=== PATIENT | female | born 1950 | race Caucasian/White ===

== ENCOUNTER → 2016-07-08 | Outpatient (CLI) | payer BC ==
[~2016-07-08] MED LIST: ASPCH81 PO; ASPCH81X PO; BND25X PO; BOWEL DETOX; CHOL400T5 PO; CHOLTAB3 PO; LISI-461 PO; LISI10TA PO; METH4PAK PO; OXYC1TAB3 PO; PROP0.6D OPB; SILVER SHIELD PO; TRAM-10 PO; [UNRECOGNIZED DRUG - OTHER]; [UNRECOGNIZED DRUG - OTHER]; [UNRECOGNIZED DRUG - OTHER]; [UNRECOGNIZED DRUG - OTHER] IO; krill oil
== END | disposition home or self-care (01) ==
LOC: C.LABSPEC 14:20
PROVIDERS: ATTEND Internal Medicine
DX: J02.9 Acute pharyngitis, unspecified (principal)

== ENCOUNTER 2016-08-19 08:37 | Emergency (ER) | payer BC ==
[~2016-08-19] VITALS: Ht 161.3 cm; Wt 75.7 kg
[~2016-08-19 08:37] MED LIST changes: -ASPCH81X PO; -CHOL400T5 PO; -LISI10TA PO; -METH4PAK PO; -OXYC1TAB3 PO; -PROP0.6D OPB; -TRAM-10 PO
[2016-08-19 08:41] VITALS: TEMP 37; Ht 161.3 cm; Wt 75.7 kg
[2016-08-19] MEDS ORDERED: CHOL400T5 PO (08:57)
[2016-08-19] MEDS ORDERED: ASPCH81X PO (08:57)
[2016-08-19] MEDS ORDERED: DEXAMETHASONE SOD INJ 10 MG/ML VIAL IV STA (09:02)
[2016-08-19] MEDS ORDERED: KETOROLAC TROMETHAMINE 30 MG/ML VIAL IV STA (09:02)
[2016-08-19 09:37] LABS: BASO % 0.4 %; BASO ABS # 0.02 K/uL (0-0.2); COMPLETE YES; EOS % 3.5 %; HEMATOCRIT 42.8 % (37-47); IG% 0.2 %; LYMPH % 25.3 %; LYMPH ABS # 1.24 K/uL (1.2-3.4); MEAN CELL VOLUME 84.8 fL (80-100); MEAN CORPUSCULAR HEMOGLOBIN 30.1 pg (25-34); MEAN CORPUSCULAR HGB CONC 35.5 g/dl (32-36); MEAN PLATELET VOLUME 9.6 fL (7.4-10.4); MONO % 4.9 %; NEUT % 65.7 %; PLATELET COUNT 214 K/uL (130-400); RED BLOOD COUNT 5.05 M/uL (4.2-5.4); WHITE BLOOD COUNT 4.91 K/uL (4.8-10.8)
[2016-08-19 09:52] LABS: BUN/CREATININE RATIO 18.2 (10-20); CALCIUM 9.7 mg/dl (8.5-10.1); CREATININE 0.96 mg/dl (0.60-1.20); POTASSIUM 3.9 mmol/L (3.5-5.1)
--- NOTE | 2016-08-19 10:08 | DIAGNOSTIC IMAGING REPORT ---
L-SPINE MIN 4 VIEWS ROUTINE CLINICAL HISTORY: Low back pain with right leg radiculopathy. COMPARISON STUDY: No previous studies for comparison. FINDINGS: There are 5 lumbar type vertebral bodies present. No fractures, subluxations, or destructive lesions are evident. There are minor degenerative changes present. IMPRESSION: No fractures subluxations or destructive lesions are visualized. Electronically signed by: Kevin Caro M.D. 08/19/2016 10:07 AM Dictated Date/Time: 08/19/2016 10:06 AM
[2016-08-19] MEDS ORDERED: METH4PAK PO (10:40)
[2016-08-19] MEDS ORDERED: OXYC1TAB3 PO (10:40)
--- NOTE | 2016-08-19 10:41 | EMERGENCY ROOM VISIT NOTE ---
History First contact with patient: 08:49 Chief Complaint: BACK PAIN Stated Complaint: SCIATICA History of Present Illness The patient is a 65 year old female who presents to the Emergency Room via private vehicle accompanied by male with complaints of "sciatica". The patient states that she has a history of sciatica which has flared in the past but has recently been tolerable. She states that 2 weeks ago, she notes that after being on her feet all day she has had progressive right gluteal numbness/ tingling that radiates down the side of her right leg across the distal thigh and down into the feet. She states it is an electrical-like feeling or burning. She states that when she had this before it was not this bad. She states she has gone to her chiropractor with minimal relief. She rates the pain as an 8/10 and has been taking Tylenol with minimal relief. She states she has had x-rays performed at her chiropractor's office. At this time she denies any lower extremity weakness, bowel or bladder incontinence, numbness or tingling in the genital region, urinary symptoms, abdominal pain, chest pain, shortness of breath, fevers, chills, fall or trauma to the region. Review of Systems A complete 10-point Review of Systems was discussed with the patient, with pertinent positives and negatives listed in the History of Present Illness. All remaining Review of Systems questions can be considered negative unless otherwise specified. Past Medical/Surgical History High blood pressure, lumpectomy Family History Diabetes, heart disease, high blood pressure, cancer. Social History Smoking Status: Never Smoker Social History: Patient lives at home with , she feels safe at home and denies tobacco products. She does admit to alcohol use. She states this is one glass of wine per week. Current/Historical Medications Scheduled Aspirin (Aspirin Chewable), 81 MG PO DAILY Cholecalciferol (Vitamin D), 1 TAB PO DAILY Lisinopril (Zestril), 10 MG PO DAILY Methylprednisolone (Medrol Dosepak), 0 PO DAILY [Alj], 2 TABLETS DAILY [Silver Shield], 1 TSP PO PRN [Sooth Eye Gtts], IO PRN [bowel detox], 3 CAPSULES DAILY [breast assured], 2 TABLETS DAILY [[id number]], 2 TABS DAILY [krill oil], 1 CAP DAILY Scheduled PRN Oxycodone Ir (Roxicodone Ir), 1-2 TAB PO Q4H PRN for Pain Allergies Coded Allergies: Meperidine (Unverified Adverse Reaction, Intermediate, syncopy, 08/19/16) Physical Exam Vital Signs Date Time Temp Pulse Resp B/P Pulse Ox O2 Delivery O2 Flow Rate FiO2 08/19/16 10:59 76 18 164/97 97 08/19/16 08:41 37.0 90 18 152/96 96 Room Air Physical Exam VITAL SIGNS - Vital signs and nursing notes were reviewed. Patient is afebrile , slightly hypertensive at 152/96, non-tachycardic and saturating well on room air 96%. GENERAL -65-year-old female appearing her stated age who is in no acute distress. Communicates well with provider and answers questions appropriately. SKIN - Without rashes. No breaks in the integument. No petechial rashes. HEAD - NC/AT. EYES - Sclera anicteric. Palpebral conjunctiva pink and moist with no injection noted. NECK - Neck with FROM. Supple to palpation. No C-spine tenderness. No nuchal rigidity. MUSCULOSKELETAL: There is no tenderness to palpation overlying the cervical, thoracic or lumbar spine. There is no bony tenderness. Overlying the right gluteal muscle extending into the right lateral thigh and across the distal thigh in the leg there is tenderness. No bony tenderness identified. Patient is able to axial load. LUNGS - Chest wall symmetric without accessory muscle use, intercostals retractions, or central cyanosis. Normal vesicular breath sounds CTA B/L. No wheezes, rales, or rhonchi appreciated. CARDIAC - RRR with S1/S2. No murmur, rubs, or gallops appreciated. EXTREMITIES - No clubbing or peripheral cyanosis. No pretibial edema present. Patient is vascularly intact in the extremities. +5/5 strength noted in UE/LE bilaterally. No deficits appreciated. NEUROLOGIC - Cranial nerves II through XII grossly intact. Sensory intact to light touch throughout. Patellar reflexes +2/4. Medical Decision & Procedures ER Provider Diagnostic Interpretation: L-SPINE MIN 4 VIEWS ROUTINE CLINICAL HISTORY: Low back pain with right leg radiculopathy. COMPARISON STUDY: No previous studies for comparison. FINDINGS: There are 5 lumbar type vertebral bodies present. No fractures, subluxations, or destructive lesions are evident. There are minor degenerative changes present. IMPRESSION: No fractures subluxations or destructive lesions are visualized. Electronically signed by: Kevin Caro M.D. 08/19/2016 10:07 AM Dictated Date/Time: 08/19/2016 10:06 AM Laboratory Results 08/19/16 09:16 Red Blood Count 5.05, Mean Corpuscular Volume 84.8, Mean Corpuscular Hemoglobin 30.1, Mean Corpuscular Hemoglobin Concent 35.5, Mean Platelet Volume 9.6, Neutrophils (%) (Auto) 65.7, Lymphocytes (%) (Auto) 25.3, Monocytes (%) (Auto) 4.9, Eosinophils (%) (Auto) 3.5, Basophils (%) (Auto) 0.4, Neutrophils # (Auto) 3.23, Lymphocytes # (Auto) 1.24, Monocytes # (Auto) 0.24, Eosinophils # (Auto) 0.17, Basophils # (Auto) 0.02 08/19/16 09:16 Test 08/19/16 09:16 White Blood Count 4.91 K/uL (4.8-10.8) Red Blood Count 5.05 M/uL (4.2-5.4) Hemoglobin 15.2 g/dL (12.0-16.0) Hematocrit 42.8 % (37-47) Mean Corpuscular Volume 84.8 fL (80-100) Mean Corpuscular Hemoglobin 30.1 pg (25-34) Mean Corpuscular Hemoglobin Concent 35.5 g/dl (32-36) Platelet Count 214 K/uL (130-400) Mean Platelet Volume 9.6 fL (7.4-10.4) Neutrophils (%) (Auto) 65.7 % Lymphocytes (%) (Auto) 25.3 % Monocytes (%) (Auto) 4.9 % Eosinophils (%) (Auto) 3.5 % Basophils (%) (Auto) 0.4 % Neutrophils # (Auto) 3.23 K/uL (1.4-6.5) Lymphocytes # (Auto) 1.24 K/uL (1.2-3.4) Monocytes # (Auto) 0.24 K/uL (0.11-0.59) Eosinophils # (Auto) 0.17 K/uL (0-0.5) Basophils # (Auto) 0.02 K/uL (0-0.2) RDW Standard Deviation 40.0 fL (36.4-46.3) RDW Coefficient of Variation 13.1 % (11.5-14.5) Immature Granulocyte % (Auto) 0.2 % Immature Granulocyte # (Auto) 0.01 K/uL (0.00-0.02) Anion Gap 8.0 mmol/L (3-11) Est Creatinine Clear Calc Drug Dose 59.1 ml/min Estimated GFR () 72.9 Estimated GFR (Non- 62.9 BUN/Creatinine Ratio 18.2 (10-20) Calcium Level 9.7 mg/dl (8.5-10.1) Medications Administered Medications (Trade) Dose Ordered Sig/Leti Route Start Time Stop Time Status Last Admin Dose Admin Ketorolac Tromethamine (Toradol Inj) 30 mg NOW STAT IV 08/19/16 09:02 08/19/16 09:10 DC 08/19/16 09:02 30 MG Dexamethasone Sodium Phosphate (Decadron Inj) 10 mg NOW STAT IV 08/19/16 09:02 08/19/16 09:10 DC 08/19/16 09:02 10 MG Medical Decision Patient was seen and evaluated as above. Upon presentation it appears that she is experiencing radicular symptoms. After obtaining a thorough history and physical examination I did elect to obtain radiographs of the L-spine. These are negative for acute process. The patient did not have any bony tenderness or back pain however does appear that she has radicular symptoms in the right gluteal region consistent with sciatica that radiates down into the right lower leg. Due to the nature of the pain as like an electrical or burning pain as well as the patient having a previous history of sciatica with the same symptoms however this time just worse I do believe that this is most likely the cause of her pain. Due to the underlying comorbidities I did find it to be appropriate to obtain basic lab work and provide her with pain medication. IV access was initiated and a CBC and PRP were obtained. She was medicated with 30 mg of Toradol IV as well as 10 mg of Decadron IV. These are to help with pain and inflammation likely causing the radicular symptoms of the right lower extremity. There were no neurologic deficits. Radiograph is negative with results as above. I agree with radiologist findings. The patient was reevaluated and noted to be feeling better after receiving the Toradol. I educated her upon today's findings. Her CBC is completely unremarkable. PRP is also unremarkable except for random glucose of 141. This was discussed with the patient. Given that she had good response to the Toradol, and has no concerning infectious or evidence of renal failure I do believe it is appropriate to treat the patient at this time for radicular symptoms of the right lower extremity. She will be placed upon a steroid as well as short pain medication course to help with the pain and inflammation. She'll be given a Medrol Dosepak as well as a short-term prescription for OxyIR. She was educated upon management and these medications. She was educated upon today's findings. She was educated upon worrisome symptoms in which to return She had questions answered prior to discharge, and was discharged home in good condition. In the evaluation and treatment of this patient the following differential diagnoses were entertained: Radicular symptoms of the right lower extremity, hip fracture, spinal abscess, contusion, strain, among others. [place] Drug Monitoring Program Search Results: patient reviewed within database, no issues identified Impression Primary Impression: Lumbar radiculopathy, right Departure Information Dispostion Home / Self-Care Condition GOOD Prescriptions Oxycodone Ir (Roxicodone Ir) 5 Mg Tab 1-2 TAB PO Q4H Y for Pain, #15 TAB For Initial Treatment Prov: Kiko Brennna PA-C 08/19/16 Methylprednisolone (MEDROL DOSEPAK) 4 Mg Fuentes 0 PO DAILY, #1 PKT Prov: Kiko Brennan PA-C 08/19/16 Referrals Alhaji Triplett M.D. (PCP) Tavon Donis, DO Patient Instructions [facility] Additional Instructions You have been treated in the Emergency Department for radicular pain into your right leg. You have been prescribed Oxy IR to be used for pain control. This is a narcotic medication. You cannot drive or consume alcohol while on this medicine. This medicine should only be used for pain that cannot be controlled with over-the- counter pain medicines. You have been prescribed a Medrol Dosepak. Take this medication as prescribed. You should take the COMPLETE 6-day course of this medication. This is an anti- inflammatory medicine that will help to minimize your symptoms. For pain control, you can use the following [id number] medicines (if >12 yo): - Regular strength (325mg/tab) Tylenol (acetaminophen) 2 tabs every 4-6 hours as needed. Do not exceed 12 tablets in a 24 hour period. Avoid taking more than 4 grams (4000 mg) of Tylenol per day. This includes any other sources of acetaminophen you may take on a regular basis. - Regular strength (200 mg/tab) Advil (ibuprofen) 1-2 tabs every 4-6 hours as needed. Do not exceed a dose of 3200 mg per day. If this is an acute injury, ice can be applied to the area of pain for the first 3 days to help decrease pain and inflammation. After the first 3 days, a heating pad can be used over the area for continued soothing relief. You should schedule a follow-up appointment in 2-3 days with your Primary Care Provider for further evaluation and treatment of your back pain. AND CALL THE CASE MANAGEMENT DIRECTOR LISTED ABOVE (DR. DONIS) Return to the Emergency Department if your current symptoms worsen despite treatment course outlined above, or if you develop any of the following symptoms : intractable pain despite aforementioned treatment course, loss of control of your bowel or bladder, numbness or tingling in your groin, or development of a fever. Please return to the emergency department with any new/concerning symptoms. Please follow-up with your family doctor regarding her blood pressure.
[2016-08-19 10:59] VITALS: BP 164/97; PULSE 76; O2SAT 97
[2016-11-12] MEDS ORDERED: LISI10TA PO (15:50)
[2016-11-12] MEDS ORDERED: PROP0.6D OPB (15:50)
[2016-11-12] MEDS ORDERED: TRAM-10 PO (15:50)
== END 2016-08-19 11:02 | disposition home or self-care (01) ==
LOC: C.EDB 08:38
DX: M54.16 Radiculopathy, lumbar region (principal); I10 Essential (primary) hypertension; Z79.82 Long term (current) use of aspirin; Z79.899 Other long term (current) drug therapy; Z88.8 Allergy status to other drugs, medicaments and biological substances; Z83.3 Family history of diabetes mellitus; Z82.49 Family history of ischemic heart disease and other diseases of the circulatory system; Z80.9 Family history of malignant neoplasm, unspecified

== ENCOUNTER → 2016-11-04 | Outpatient (CLI) | payer BC ==
[~2016-11-04] MED LIST changes: -ASPCH81 PO; +ASPCH81X PO; -BND25X PO; +CHOL400T5 PO; -CHOLTAB3 PO; +LISI10TA PO; +OXYC1TAB3 PO; +PROP0.6D OPB; +TRAM-10 PO
[2016-11-04 14:18] LABS: BLOOD UREA NITROGEN 13 mg/dl (7-18); BUN/CREATININE RATIO 15.6 (10-20); CALCIUM 9.1 mg/dl (8.5-10.1); CARBON DIOXIDE 30 mmol/L (21-32); CHLORIDE 108 mmol/L (98-107); CREATININE 0.82 mg/dl (0.60-1.20); GLUCOSE 96 mg/dl (70-99); SODIUM 144 mmol/L (136-145)
[2016-11-04 14:23] LABS: CHOLESTEROL 204 mg/dl (0-200); CHOLESTEROL/HDL RATIO 4.4; HDL CHOLESTEROL 46 mg/dl; TRIGLYCERIDES 149 mg/dl (0-150); VERY LOW DENSITY LIPOPROT CALC 30 mg/dl
== END | disposition home or self-care (01) ==
LOC: C.LABSPEC 12:10
PROVIDERS: ATTEND Internal Medicine
DX: Z00.00 Encounter for general adult medical examination without abnormal findings (principal); E78.5 Hyperlipidemia, unspecified; I10 Essential (primary) hypertension

== ENCOUNTER → 2016-11-10 | Outpatient (CLI) | payer BC | END | disposition home or self-care (01) | LOC: C.LABSPEC 12:17 | PROVIDERS: ATTEND Internal Medicine | DX: Z12.11 Encounter for screening for malignant neoplasm of colon (principal) ==

== ENCOUNTER → 2016-11-18 | Day surgery (SDC) | payer BC ==
[2016-11-12 15:50] VITALS: Ht 162.6 cm; Wt 72.7 kg
[~2016-11-18] VITALS: Ht 162.6 cm; Wt 72.7 kg
[~2016-11-18] MED LIST changes: +DEXAMETHASONE SOD INJ 4 MG/ML VIAL ONE; +LIDOCAINE HCL 1% MPF 5 ML VIAL ONE; -LISI-461 PO; -OXYC1TAB3 PO; -[UNRECOGNIZED DRUG - OTHER]; -[UNRECOGNIZED DRUG - OTHER]; -[UNRECOGNIZED DRUG - OTHER] IO; -krill oil
--- NOTE | 2016-11-18 09:11 | History & Physical Bridge Note ---
H&P Re-Evaluation Bridge Note: I have examined the patient, reviewed the History & Physical and in the interval since the performance of the History & Physical I have noted the following changes of clinical significance: No changes noted
--- NOTE | 2016-11-18 09:29 | [facility] Post Operative Brief Note ---
Immediate Operative Summary Operative Date Nov 18, 2016. Pre-Operative Diagnosis SPINAL STENOSIS Post-Operative Diagnosis SAME Procedure(s) Performed LUMBAR EPIDURAL STEROID INJECTION L4-L5 RIGHT Surgeon DR. Latonya TORRES Investment Specialist Surgeon(s) 0 Estimated Blood Loss 0 Findings stenosis Specimens 0 Complication(s) None Disposition Recovery Room / PACU
[2016-11-18 09:30] VITALS: TEMP 36.5
[2016-11-18 09:42] VITALS: BP 154/96; PULSE 67; O2SAT 98
--- NOTE | 2016-11-18 09:45 | OPERATIVE REPORT ---
DATE OF OPERATION: 11/18/2016 PREOPERATIVE DIAGNOSIS: Stenosis lumbar spine L4-L5. POSTOPERATIVE DIAGNOSIS: Same. PROCEDURE: Included epidural steroid 4-5 lumbar. SURGEON: Dr. Donis. DESCRIPTION OF PROCEDURE: The patient was taken to the minor procedure room, placed prone, prepped and draped sterile. 2 mL of dexamethasone injected at L4-L5 lumbar spine using a volume acceptance syringe. The patient tolerated well, returned to PACU stable. No complications. No specimen. I attest to the content of the Intraoperative Record and any orders documented therein. Any exception s are noted below.
--- NOTE | 2016-11-18 09:51 | Discharge Instructions-SurgCtr ---
Discharge Instructions Date of Service Nov 18, 2016. Visit Reason for Visit: Spinal Stenosis Discharge Discharge Diagnosis / Problem: stenosis Discharge Goals Goal(s): Improve function Activity Recommendations Activity Limitations: resume your previous activity Anesthesia . Post Anesthesia Instructions: If you have had General Anesthesia or IV Sedation: * Do not drive today. * Resume driving when surgeon permits. * Do not make important decisions or sign legal documents today. * Call surgeon for: 1. Temperature elevations greater than 101 degrees F. 2. Uncontrollable pain. 3. Excessive bleeding. 4. Persistent nausea and vomiting. 5. Medication intolerance (nausea, vomiting or rash). * For nausea and vomiting use only clear liquids such as: tea, soda, bouillon until nausea subsides, then gradually increase diet as tolerated. * If you have any concerns or questions, call your surgeon's office. If physician is unavailable and it is an emergency, call 911 or go to the nearest emergency room. . Diet Recommendations Home Diet: no limitations Procedures Procedures Performed: LUMBAR EPIDURAL STEROID INJECTION L4-L5 RIGHT Pending Studies Studies pending at discharge: no Medical Emergencies . Who to Call and When: Medical Emergencies: If at any time you feel your situation is an emergency, please call 911 immediately. . Non-Emergent Contact Non-Emergency issues call your: Primary Care Provider . . "Provider Documentation" section prepared by Tavon Donis. .
== END | disposition home or self-care (01) ==
LOC: X.SURG 08:00
PROVIDERS: ATTEND Orthopaedic Surgery Orthopaedic Surgery of the Spine
DX: M48.06 Spinal stenosis, lumbar region (principal); I10 Essential (primary) hypertension; Z85.3 Personal history of malignant neoplasm of breast

== ENCOUNTER → 2017-01-06 | Outpatient (CLI) | payer BC ==
[~2017-01-06] MED LIST changes: -DEXAMETHASONE SOD INJ 4 MG/ML VIAL ONE; -LIDOCAINE HCL 1% MPF 5 ML VIAL ONE
== END | disposition home or self-care (01) ==
LOC: C.PAPS 10:53
PROVIDERS: ATTEND Physician Assistant
DX: Z01.419 Encounter for gynecological examination (general) (routine) without abnormal findings (principal)

== ENCOUNTER → 2017-03-15 | Outpatient (CLI) | payer BC ==
--- NOTE | 2017-03-17 07:45 | MAMMOGRAPHY REPORT ---
BILATERAL DIGITAL SCREENING MAMMOGRAM TOMOSYNTHESIS WITH CAD: 03/15/2017 CLINICAL HISTORY: Asymptomatic. Personal history of breast cancer. TECHNIQUE: Breast tomosynthesis in addition to standard 2D mammography was performed. Current study was also evaluated with a Computer Aided Detection (CAD) system. COMPARISON: Comparison is made to exams dated: 03/11/2016 mammogram, 03/04/2015 mammogram, 12/26/2013 mammogram, 12/21/2012 mammogram, 07/04/2012 aspiration, and 06/30/2012 ultrasound - [facility]. BREAST COMPOSITION: There are scattered areas of fibroglandular density in both breasts. FINDINGS: There is expected architectural distortion with dystrophic calcification in the far ironer machine ior 12:00 left breast, at the site of prior lumpectomy. There are stable biopsy marker clips within each breast. Scattered benign-appearing calcifications. Stable nodularity in the anterior right nannette ast. No new suspicious mass, architectural distortion or cluster of microcalcifications is seen. IMPRESSION: ACR BI-RADS CATEGORY 1: NEGATIVE There is no mammographic evidence of malignancy. A 1 year screening mammogram is recommended. The pa tient will receive written notification of the results. Approximately 10% of breast cancers are not detected with mammography. A negative mammographic report should not delay biopsy if a clinically suggestive mass is present. Karie Temple M.D. ay/:03/15/2017 16:17:53 Electrical And Electronic [employer]sembler: Irina CARLOS)(Zaid), [facility] letter sent: Normal 1/2 BI-RADS Code: ACR BI-RADS Category 1: Negative
== END | disposition home or self-care (01) ==
LOC: C.MAMM 15:52
PROVIDERS: ATTEND Surgery
DX: Z12.31 Encounter for screening mammogram for malignant neoplasm of breast (principal); Z85.3 Personal history of malignant neoplasm of breast

== ENCOUNTER → 2017-05-06 | Day surgery (SDC) | payer BC ==
[2017-04-26 11:36] VITALS: Ht 162.6 cm; Wt 72.7 kg
[~2017-05-06] VITALS: Ht 162.6 cm; Wt 72.7 kg
[~2017-05-06] MED LIST changes: +DEXAMETHASONE SOD INJ 4 MG/ML VIAL ONE; +LIDOCAINE HCL 1% MPF 5 ML VIAL ONE
[2017-05-06 07:54] VITALS: TEMP 36.6
--- NOTE | 2017-05-06 07:54 | Discharge Instructions ---
Discharge Instructions Date of Service May 06, 2017. Visit Reason for Visit: Spinal Stenosis Discharge Discharge Diagnosis / Problem: same Discharge Goals Goal(s): Improve function Activity Recommendations Activity Limitations: resume your previous activity Anesthesia . Post Anesthesia Instructions: If you have had General Anesthesia or IV Sedation: * Do not drive today. * Resume driving when surgeon permits. * Do not make important decisions or sign legal documents today. * Call surgeon for: 1. Temperature elevations greater than 101 degrees F. 2. Uncontrollable pain. 3. Excessive bleeding. 4. Persistent nausea and vomiting. 5. Medication intolerance (nausea, vomiting or rash). * For nausea and vomiting use only clear liquids such as: tea, soda, bouillon until nausea subsides, then gradually increase diet as tolerated. * If you have any concerns or questions, call your surgeon's office. If physician is unavailable and it is an emergency, call 911 or go to the nearest emergency room. . Diet Recommendations Recommended Home Diet: no limitations Pending Studies Studies pending at discharge: no Medical Emergencies . Who to Call and When: Medical Emergencies: If at any time you feel your situation is an emergency, please call 911 immediately. . Non-Emergent Contact Non-Emergency issues call your: Surgeon . . "Provider Documentation" section prepared by Tavon Donis. .
--- NOTE | 2017-05-06 07:55 | [facility] Operative Report ---
Operative Report Operative Date May 06, 2017. Pre-Operative Diagnosis stenosis Post-Operative Diagnosis same Procedure(s) Performed juan l4-5 Findings stenosis Complication(s) None I attest to the content of the Intraoperative Record and any orders documented therein. Any exceptions are noted below.
[2017-05-06 08:02] VITALS: BP 161/105; PULSE 82; O2SAT 98
--- NOTE | 2017-05-06 08:45 | OPERATIVE REPORT ---
DATE OF OPERATION: 05/06/2017 PREOPERATIVE DIAGNOSIS: Spinal stenosis, lumbar. POSTOPERATIVE DIAGNOSIS: Same. PROCEDURE: Include epidural steroid L4-L5 lumbar. COMPLICATIONS: Zero. BLOOD LOSS: Zero. SURGEON: Dr. Donis. DESCRIPTION OF PROCEDURE: The patient was taken to the operating room and placed prone, scrubbed, prepped and draped sterile. I anesthetized the skin, 2 mL of dexamethasone injected to the epidural space using an air acceptance technique without incident. Needle was withdrawn. The patient returned to PACU stable. No complications. I attest to the content of the Intraoperative Record and any orders documented therein. Any exception s are noted below.
== END | disposition home or self-care (01) ==
LOC: X.SURG 06:33
PROVIDERS: ATTEND Orthopaedic Surgery Orthopaedic Surgery of the Spine
DX: M48.061 Spinal stenosis, lumbar region without neurogenic claudication (principal); I10 Essential (primary) hypertension; Z79.899 Other long term (current) drug therapy; Z85.3 Personal history of malignant neoplasm of breast

== ENCOUNTER → 2017-06-29 | Outpatient (CLI) | payer BC ==
[~2017-06-29] MED LIST changes: -DEXAMETHASONE SOD INJ 4 MG/ML VIAL ONE; -LIDOCAINE HCL 1% MPF 5 ML VIAL ONE
== END | disposition home or self-care (01) ==
LOC: C.LABSPEC 14:58
PROVIDERS: ATTEND Internal Medicine
DX: M25.50 Pain in unspecified joint (principal)

== ENCOUNTER 2022-01-12 05:54 | Observation (INO) ==
--- NOTE | 2022-01-12 06:38 | Emergency Department Note ---
Impression & Plan Dizziness, Primary hypertension, Acute hyperglycemia ED Provider Note NAME: CHRISTIANE DUMONT AGE: 71 SEX: F : 1950 ARRIVES VIA: Walk-In INFORMANT: Patient ED PROVIDER(S): Aroldo Hutton DO CHIEF COMPLAINT: Dizzy HPI: Patient is a 71-year-old female who presents to the ER for dizziness. Symptoms started at the end of October going into November following having COVID. This has been present since then. It has been worse over the past week. She denies any weakness or numbness in her arms or legs. No headache or change in vision. No chest pain or shortness of breath. No nausea, vomiting, or diarrhea. Symptoms resolved with rest. No dysuria, urgency, or frequency. ROS: See above HPI for pertinent positives & negatives. A total of 10 systems reviewed and were otherwise negative. PAST MEDICAL HISTORY:See Below PAST SURGICAL HISTORY:See Below FAMILY HISTORY:See Below SOCIAL HISTORY:See Below HOME MEDICATIONS:See Below ALLERGIES:See Below VITALS:See Below PHYSICAL EXAMINATION: GENERAL: Sitting up in bed, alert, well appearing, well nourished, no distress, non-toxic EYE EXAM: normal conjunctiva. PERRL and EOM's intact. OROPHARYNX: no exudate, no erythema, lips, buccal mucosa, and tongue normal and mucous membranes are moist NECK: supple, no nuchal rigidity, no adenopathy, non-tender LUNGS: Clear to auscultation. Normal chest wall mechanics HEART: no murmurs, S1 normal and S2 normal ABDOMEN: abdomen soft, non-tender, normo-active bowel sounds, no masses, no rebound or guarding. BACK: Back is symmetrical on inspection and there is no deformity, no midline tenderness, no CVA tenderness. SKIN: no rashes and no bruising UPPER EXTREMITIES: upper extremities are grossly normal. LOWER EXTREMITIES: No pitting edema. NEURO EXAM: Normal sensorium, cranial nerves II-XII intact, normal speech, no weakness of arms, no weakness of legs. No drift. Finger to nose intact. Gross sensation intact. MEDICAL DECISION MAKING: Patient is a 71-year-old female who presents ER for the boasting complaint. She notes she has been dizzy for the past month with significant worsening over the past week. It is positional. IV was established blood work was obtained. Labs show no significant leukocytosis or anemia. BMP was unremarkable with the exception of an elevated glucose of 365. LFTs bilirubin was unremarkable. Tro ponin was negative. TSH was unremarkable. UA was unremarkable. COVID was negative. CTA of the head and neck was negative. Patient was given IV fluids as well as insulin for the elevated blood sugar. Systolic pressures up in the 200s. Given IV hydralazine which trended down to 170. She was updated bedside. Question of this contributing factor to her vertiginous symptoms and discussed with hospitalist for further observation. Triage Nursing notes reviewed. Limited review of prior medical records performed Vital Signs: reviewed and remarkable for HTN and tachy Differential diagnosis: Differential diagnosis includes etiologies such as benign positional vertigo, dehydration, hypovolemia, anemia, tumor, infection, hypoglycemia, electrolyte abnormalities, cardiac sources, intracerebral event, toxicologic, neurological, as well as others were entertained. ER treatment provided: See below Diagnostics interpreted by me: ECG: Sinus rhythm rate 86 Normal axis No PVCs Poor baseline T wave inversion lead III Cardiac Monitoring: An order was placed for continuous cardiac monitoring. The monitor shows a rate of 101 with sinus rhythm. Laboratory studies: As stated above and show below. Imaging studies: CT angio of the head and neck was negative Consultation(s): Discussed with Eugenio Hernandes for further evaluation Procedures: none Critical Care: None Past Med/Surg History Medical History (Updated 01/12/22 @ 12:24 by Aroldo Hutton DO) Anxiety Chronic back pain History of infiltrating ductal carcinoma of breast L side 2008 s/p lumpectomy & radiation & arimidex Hypercholesteremia Primary hypertension Surgical History (Updated 12/09/21 @ 14:42 by Faith Severino MD) Cancer LEFT BREAST LUMPECTOMY-[facility] REMOVAL-2008 History of lumpectomy of left breast S/P epidural steroid injection Family History (Updated 12/09/21 @ 14:01 by Geovanna Etienne) Sister Family history of diabetes mellitus Heart disease Sister Family history of diabetes mellitus Heart disease Denies family history of Ovarian cancer Prostate cancer Breast cancer Colorectal cancer Social History (Updated 12/09/21 @ 14:02 by Geovanna Etienne) Smoking Status: Never smoker Second Hand Exposure: No; Hx Alcohol Use: No Hx Substance Use: No Preferred Language: Setswana Communication Ability: Effective Visual Impairment: No Limitations Hearing Ability: Normal 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 Beliefs That Will Affect Care: None marital status: Current Living Situation: Spouse current occupational status: retired 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 Safe at Home: Yes Dental Care, Regularly: Yes Physical Activity Frequency: Does not Exercise Seatbelt Use: always Assistive Devices: Denture - Upper and Glasses Allergies Allergies Allergy/AdvReac Type Severity Reaction Status Date / Time meperidine AdvReac Intermediate syncopy Verified 01/12/22 06:58 Home Meds Home Medications Medication Instructions Recorded Confirmed aspirin 81 mg tablet,delayed 81 mg PO QAM 11/15/18 01/12/22 release (Aspir-) Previous Rx's Medication Instructions Recorded artificial tears(hypromellose) 0.3 1 drp ophthalmic (eye) HS PRN dry 12/09/21 % eye gel (Systane Gel) eyes #10 grams cholecalciferol (vitamin D3) 25 25 mcg PO DAILY #30 caps 12/09/21 mcg (1,000 unit) capsule escitalopram oxalate 10 mg tablet 10 mg PO BID #180 tabs 12/09/21 (Lexapro) lisinopril 20 mg tablet 20 mg PO DAILY #90 tabs 12/09/21 melatonin 10 mg capsule 10 mg PO HS PRN sleep #90 caps 12/09/21 peg 400-propylene glycol 0.4 %-0.3 1 drp ophthalmic (eye) DAILY PRN 12/09/21 % eye drops (Systane Ultra) dry eye(s) #30 mL zinc 50 mg tablet 50 mg PO DAILY #30 tabs 12/09/21 Results & Data (ED) Vital Signs Vital Signs - 24 hr 01/12/22 05:59 01/12/22 06:38 01/12/22 06:38 Temperature 36.9 C Temperature Source Temporal Artery Scan Pulse Rate 102 H Pulse Rate [Apical] Pulse Rhythm Regular Pulse Strength Normal Respiratory Rate 18 20 Respiratory Effort / Characteristics Non-Labored Spontaneous Non-Labored Spontaneous Respiratory Depth Normal Respiratory Pattern Regular Blood Pressure 156/94 H Blood Pressure [Left Arm] Blood Pressure Mean 114 Blood Pressure Mean [Left Arm] Blood Pressure Position Sitting Blood Pressure Position [Left Arm] Pulse Oximetry 97 95 Oxygen Delivery Method Room Air Room Air Room Air Sepsis Recent Fever Within 48 Hours No Sepsis New/Unexplained Change in Mental Status N/A Sepsis Action Taken by Nursing No Action Required Pulse Oximetry Post Tiitration 95 01/12/22 06:38 01/12/22 08:13 01/12/22 09:34 Temperature Temperature Source Pulse Rate Pulse Rate [Apical] 60 59 L Pulse Rhythm Pulse Strength Respiratory Rate 18 16 Respiratory Effort / Characteristics Non-Labored Spontaneous Non-Labored Respiratory Depth Normal Normal Respiratory Pattern Blood Pressure Blood Pressure [Left Arm] 192/103 H 184/98 H Blood Pressure Mean Blood Pressure Mean [Left Arm] 132 126 Blood Pressure Position Blood Pressure Position [Left Arm] Pulse Oximetry 95 96 95 Oxygen Delivery Method Room Air Room Air Room Air Sepsis Recent Fever Within 48 Hours Sepsis New/Unexplained Change in Mental Status Sepsis Action Taken by Nursing Pulse Oximetry Post Tiitration 01/12/22 10:04 Temperature Temperature Source Pulse Rate Pulse Rate [Apical] Pulse Rhythm Pulse Strength Respiratory Rate Respiratory Effort / Characteristics Respiratory Depth Respiratory Pattern Blood Pressure Blood Pressure [Left Arm] 185/102 H Blood Pressure Mean Blood Pressure Mean [Left Arm] 129 Blood Pressure Position Blood Pressure Position [Left Arm] Lying Pulse Oximetry Oxygen Delivery Method Sepsis Recent Fever Within 48 Hours Sepsis New/Unexplained Change in Mental Status Sepsis Action Taken by Nursing Pulse Oximetry Post Tiitration Laboratory Data Result diagrams: 01/12/22 06:35 01/12/22 06:35 Lab Results 01/12/22 01/12/22 01/12/22 Range/Units 06:35 06:35 06:35 WBC 5.84 (4.8-10.8) K/ul RBC 4.86 (3.93-5.22) M/uL Hgb 14.4 (12.0-16.0) g/dl Hct 41.6 (34.1-44.9) % MCV 85.6 (80.0-100.0) fL MCH 29.6 (25.0-34.0) pg MCHC 34.6 (32.0-36.0) g/dL RDW Std Deviation 39.1 (36.4-46.3) fL RDW Coeff of Ashley 12.5 (11.5-14.5) % Plt Count 200 (130-400) K/uL MPV 10.2 (9.4-12.3) fL Immature Gran % (Auto) 0.2 % Neut % (Auto) 70.8 % Lymph % (Auto) 16.3 % Dixon % (Auto) 8.0 % Eos % (Auto) 3.8 % Baso % (Auto) 0.9 % Neut # (Auto) 4.14 (1.4-6.5) K/uL Lymph # (Auto) 0.95 L (1.2-3.4) K/uL Dixon # (Auto) 0.47 (0.24-0.82) K/uL Eos # (Auto) 0.22 (0-0.50) K/uL Baso # (Auto) 0.05 (0-0.2) K/uL Immature Gran # (Auto) 0.01 (0.00-0.02) K/uL Sodium 136 (136-145) mmol/L Potassium 4.1 (3.5-5.1) mmol/L Chloride 101 (98-107) mmol/L Carbon Dioxide 22 (21-32) mmol/L Anion Gap 13 H (3-11) BUN 25 H (6-23) mg/dl Creatinine 1.01 (0.6-1.2) mg/dl Est Cr Clr Drug Dosing 53.7 ml/min Est GFR ( Amer) 65.8 ml/min Est GFR (Non-Af Amer) 56.8 ml/min BUN/Creatinine Ratio 24.8 H (10-20) Glucose 365 H* (70-99(Fasting)) mg/dl POC Glucose (70-99) mg/dl Calcium 9.2 (8.5-10.1) mg/dl Magnesium 1.8 (1.7-2.4) mg/dl Total Bilirubin 0.6 (0.2-1.0) mg/dl AST 35 (13-39) U/L ALT 45 (7-52) U/L Alkaline Phosphatase 79 (34-104) U/L Troponin I High Sens 5.3 (0-14) pg/ml Total Protein 7.0 (6.0-8.3) gm/dl Albumin 4.1 (3.4-5.0) gm/dl Globulin 2.9 (2.5-4.0) gm/dl Albumin/Globulin Ratio 1.4 (0.9-2) TSH 3.107 (0.300-4.500) uIu/ml Urine Color Urine Appearance (Clear) Urine pH (4.5-7.5) Ur Specific [place] (1.000-1.030) Urine Protein (Negative) Urine Glucose (UA) (Negative) Urine Ketones (Negative) Urine Blood (Negative) Urine Nitrite (Negative) Urine Bilirubin (Negative) Urine Urobilinogen (Negative) Ur Leukocyte Esterase (Negative) SARS-CoV-2, RNA, NAAT (NEGATIVE) 01/12/22 01/12/22 01/12/22 Range/Units 08:11 08:37 09:32 WBC (4.8-10.8) K/ul RBC (3.93-5.22) M/uL Hgb (12.0-16.0) g/dl Hct (34.1-44.9) % MCV (80.0-100.0) fL MCH (25.0-34.0) pg MCHC (32.0-36.0) g/dL RDW Std Deviation (36.4-46.3) fL RDW Coeff of Ashley (11.5-14.5) % Plt Count (130-400) K/uL MPV (9.4-12.3) fL Immature Gran % (Auto) % Neut % (Auto) % Lymph % (Auto) % Dixon % (Auto) % Eos % (Auto) % Baso % (Auto) % Neut # (Auto) (1.4-6.5) K/uL Lymph # (Auto) (1.2-3.4) K/uL Dixon # (Auto) (0.24-0.82) K/uL Eos # (Auto) (0-0.50) K/uL Baso # (Auto) (0-0.2) K/uL Immature Gran # (Auto) (0.00-0.02) K/uL Sodium (136-145) mmol/L Potassium (3.5-5.1) mmol/L Chloride (98-107) mmol/L Carbon Dioxide (21-32) mmol/L Anion Gap (3-11) BUN (6-23) mg/dl Creatinine (0.6-1.2) mg/dl Est Cr Clr Drug Dosing ml/min Est GFR ( Amer) ml/min Est GFR (Non-Af Amer) ml/min BUN/Creatinine Ratio (10-20) Glucose (70-99(Fasting)) mg/dl POC Glucose 193 H (70-99) mg/dl Calcium (8.5-10.1) mg/dl Magnesium (1.7-2.4) mg/dl Total Bilirubin (0.2-1.0) mg/dl AST (13-39) U/L ALT (7-52) U/L Alkaline Phosphatase (34-104) U/L Troponin I High Sens (0-14) pg/ml Total Protein (6.0-8.3) gm/dl Albumin (3.4-5.0) gm/dl Globulin (2.5-4.0) gm/dl Albumin/Globulin Ratio (0.9-2) TSH (0.300-4.500) uIu/ml Urine Color Yellow Urine Appearance Clear (Clear) Urine pH 6.5 (4.5-7.5) Ur Specific [place] 1.008 (1.000-1.030) Urine Protein Negative (Negative) Urine Glucose (UA) 2+ H (Negative) Urine Ketones Negative (Negative) Urine Blood Negative (Negative) Urine Nitrite Negative (Negative) Urine Bilirubin Negative (Negative) Urine Urobilinogen Negative (Negative) Ur Leukocyte Esterase Negative (Negative) SARS-CoV-2, RNA, NAAT NEGATIVE (NEGATIVE) Administered Medications Discontinued Medications Hydralazine HCl (Hydralazine Hcl 20 Mg/Ml Vial) 10 mg IV NOW STA Stop: 01/12/22 09:28 Last Admin: 01/12/22 09:34 Dose: 10 mg Documented By: NNEKA Sodium Chloride (Nss 1000ml) 1,000 mls @ 999 mls/hr IV .Q1H1M ONE Stop: 01/12/22 07:54 Last Infusion: 01/12/22 08:14 Dose: 0 mls/hr Documented By: Admin: 01/12/22 07:13 Dose: 999 mls/hr Documented By: NNEKA Sodium Chloride (Nss) 500 mls @ 999 mls/hr IV .Q31M ONE Stop: 01/12/22 08:06 Last Infusion: 01/12/22 08:42 Dose: 0 mls/hr Documented By: Admin: 01/12/22 08:07 Dose: 999 mls/hr Documented By: NNEKA Insulin Human Regular (Novolin-R Insulin Per Unit Charge) 6 units IV NOW STA Stop: 01/12/22 07:37 Last Admin: 01/12/22 08:07 Dose: 6 units Documented By: NNEKA Co-signed By: DARWIN Ioversol (Optiray 300 500ml) 120 ml IV ONCE ONE Stop: 01/12/22 08:31 Last Admin: 01/12/22 08:31 Dose: 120 ml Documented By: IRASEMA Imaging Data Radiologist's Impression: Head CTA 01/12/22 06:35 CT ANGIOGRAM OF THE BRAIN COMBO; CT ANGIOGRAM OF THE NECK CLINICAL HISTORY: Dizziness. Vertigo. Recent Covid. COMPARISON STUDY: MRI of the brain dated 08/07/2013. TECHNIQUE: Unenhanced axial CT scan of the brain is performed. Subsequently, following the IV administration of 120 of Optiray 300, CT angiogram of the head and neck was performed from the aortic arch to the vertex. Images are reviewed in the axial, sagittal, and coronal planes. 3-D MIPS images are created and assessed. IV contrast was administered without complication. All measurements were calculated based on NASCET criteria. A dose lowering technique was utilized adhering to the principles of ALARA. CT DOSE: 1136.01 mGy.cm FINDINGS: Brain parenchyma: There is age-related involutional change noting minimal micr oangiopathic disease. There is no hemorrhage, mass effect, or evidence of acute territorial ischemia by CT criteria. There is no evidence of enhancing mass lesion on the angiogram phase images. The ventricles, sulci, and cisterns are prominent secondary to involutional change. Bansal-white matter differentiation is preserved. No extra-axial fluid collection is seen. Thoracic aorta: Visualized portions of the thoracic aorta are normal in caliber. The aortic arch demonstrates bovine variant anatomy. Right carotid arterial system: The right common carotid artery is widely patent, as are the right internal and external carotid arteries. Left carotid arterial system: The left common carotid artery is widely patent, as are the left internal and external carotid arteries. Vertebral arteries: The vertebral arteries are widely patent bilaterally noting left-sided dominance. Subclavian arteries: Widely patent bilaterally. Intracranial vasculature: There is atherosclerotic calcification of the cavernous carotid arteries. The internal carotid arteries are patent at the skull base, as are the anterior and middle cerebral arteries bilaterally. There are bilateral posterior communicating arteries. The right P1 segment is diminutive. The vertebrobasilar system and posterior cerebral arteries are widely patent. The left vertebral artery is dominant. There is no aneurysm, high-grade stenosis, or focal vessel cut off seen throughout the intracranial circulation. Jugular veins: Patent bilaterally. Dural sinuses: Patent. Upper chest: Partially visualized upper lobe lung parenchyma appears clear. Mediastinal and hilar lymphadenopathy is partially visualized. Prevascular nodes measure up to 13 mm in short axis. A right peritracheal node measures 1.4 cm in short axis. Soft tissues: The visualized pharyngeal soft tissues are normal in appearance noting angiographic phase technique. The oropharyngeal airway appears widely patent. The thyroid gland is mildly enlarged and heterogeneous. The salivary glands are normal in appearance. No cervical lymphadenopathy is seen. Skeletal structures: The skeletal structures are osteopenic. The calvarium appears intact. The cervical spine is maintained noting mild spondylosis. No lytic or blastic lesion is seen. Orbits: The bony orbits are intact. Orbital contents are normal as visualized. Sinuses and mastoids: There is mild mucosal thickening in the right maxillary antrum. The remaining paranasal sinuses are clear. The mastoid air cells are well pneumatized. IMPRESSION: 1. There is no hemorrhage, mass effect, or evidence of acute territorial ischemia by CT criteria. 2. Unremarkable CT angiogram of the brain. 3. Unremarkable CT venogram of the neck. 4. Mildly enlarged mediastinal and hilar lymph nodes are partially visualized. These may be reactive and clinical correlation will be required. ACT 112: Negative or not required by law. Electronically signed by: Reynaldo Schuster M.D. 01/12/2022 9:00 AM Neck CTA 01/12/22 06:35 CT ANGIOGRAM OF THE BRAIN COMBO; CT ANGIOGRAM OF THE NECK CLINICAL HISTORY: Dizziness. Vertigo. Recent Covid. COMPARISON STUDY: MRI of the brain dated 08/07/2013. TECHNIQUE: Unenhanced axial CT scan of the brain is performed. Subsequently, following the IV administration of 120 of Optiray 300, CT angiogram of the head and neck was performed from the aortic arch to the vertex. Images are reviewed in the axial, sagittal, and coronal planes. 3-D MIPS images are created and assessed. IV contrast was administered without complication. All measurements were calculated based on NASCET criteria. A dose lowering technique was utilized adhering to the principles of ALARA. CT DOSE: 1136.01 mGy.cm FINDINGS: Brain parenchyma: There is age-related involutional change noting minimal microangiopathic disease. There is no hemorrhage, mass effect, or evidence of acute territorial ischemia by CT criteria. There is no evidence of enhancing mass lesion on the angiogram phase images. The ventricles, sulci, and cisterns are prominent secondary to involutional change. Bansal-white matter differentiation is preserved. No extra-axial fluid collection is seen. Thoracic aorta: Visualized portions of the thoracic aorta are normal in caliber. The aortic arch demonstrates bovine variant anatomy. Right carotid arterial system: The right common carotid artery is widely patent, as are the right internal and external carotid arteries. Left carotid arterial system: The left common carotid artery is widely patent, as are the left internal and external carotid arteries. Vertebral arteries: The vertebral arteries are widely patent bilaterally noting left-sided dominance. Subclavian arteries: Widely patent bilaterally. Intracranial vasculature: There is atherosclerotic calcification of the cavernous carotid arteries. The internal carotid arteries are patent at the skull base, as are the anterior and middle cerebral arteries bilaterally. There are bilateral posterior communicating arteries. The right P1 segment is diminutive. The vertebrobasilar system and posterior cerebral arteries are widely patent. The left vertebral artery is dominant. There is no aneurysm, high-grade stenosis, or focal vessel cut off seen throughout the intracranial circulation. Jugular veins: Patent bilaterally. Dural sinuses: Patent. Upper chest: Partially visualized upper lobe lung parenchyma appears clear. Mediastinal and hilar lymphadenopathy is partially visualized. Prevascular nodes measure up to 13 mm in short axis. A right peritracheal node measures 1.4 cm in short axis. Soft tissues: The visualized pharyngeal soft tissues are normal in appearance noting angiographic phase technique. The oropharyngeal airway appears widely patent. The thyroid gland is mildly enlarged and heterogeneous. The salivary glands are normal in appearance. No cervical lymphadenopathy is seen. Skeletal structures: The skeletal structures are osteopenic. The calvarium appears intact. The cervical spine is maintained noting mild spondylosis. No lytic or blastic lesion is seen. Orbits: The bony orbits are intact. Orbital contents are normal as visualized. Sinuses and mastoids: There is mild mucosal thickening in the right maxillary antrum. The remaining paranasal sinuses are clear. The mastoid air cells are well pneumatized. IMPRESSION: 1. There is no hemorrhage, mass effect, or evidence of acute territorial ischemia by CT criteria. 2. Unremarkable CT angiogram of the brain. 3. Unremarkable CT venogram of the neck. 4. Mildly enlarged mediastinal and hilar lymph nodes are partially visualized. These may be reactive and clinical correlation will be required. ACT 112: Negative or not required by law. Electronically signed by: Reynaldo Schuster M.D. 01/12/2022 9:00 AM Discharge Plan Visit Data Chief Complaint: Dizziness Stated Complaint: DIZZINESS,LIGHTHEADED,ACHES AND PAINS ED Provider: Aroldo Hutton Discharge Problem: Dizziness, Primary hypertension, Acute hyperglycemia Discharge Instructions Interventions: ED Discharge Assessment Last Done: 01/12/22 12:18
[2022-01-12 06:53] LABS: Basophils # (auto) 0.05 K/uL (0-0.2); Basophils % (auto) 0.9 %; Eosinophils # (auto) 0.22 K/uL (0-0.50); Eosinophils % (auto) 3.8 %; Hematocrit (blood only) 41.6 % (34.1-44.9); Hemoglobin 14.4 g/dl (12.0-16.0); Immature Granulocytes # (auto) 0.01 K/uL (0.00-0.02); Immature Granulocytes % (auto) 0.2 %; Lymphocytes # (auto) 0.95 K/uL (1.2-3.4); Lymphocytes % (auto) 16.3 %; Mean Corpuscular Hemoglobin 29.6 pg (25.0-34.0); Mean Corpuscular Hgb Conc 34.6 g/dL (32.0-36.0); Mean Corpuscular Volume 85.6 fL (80.0-100.0); Mean Platelet Volume 10.2 fL (9.4-12.3); Monocytes # (auto) 0.47 K/uL (0.24-0.82); Neutrophils # (auto) 4.14 K/uL (1.4-6.5); Neutrophils % (auto) 70.8 %; Platelet Count 200 K/uL (130-400); RDW Coefficient of Variation 12.5 % (11.5-14.5); RDW Standard Deviation 39.1 fL (36.4-46.3); Red Blood Count 4.86 M/uL (3.93-5.22); White Blood Count 5.84 K/ul (4.8-10.8)
[2022-01-12] MEDS ORDERED: SODIUM CHLORIDE 0.9% 1000ML 1,000 ML IV ONE (06:54)
[2022-01-12 07:27] LABS: Albumin Globulin Ratio 1.4 (0.9-2); Albumin Level 4.1 gm/dl (3.4-5.0); BUN Creatinine Ratio 24.8 (10-20); Bilirubin,Total 0.6 mg/dl (0.2-1.0); Calcium 9.2 mg/dl (8.5-10.1); Creatinine Clr Calc Pharmacy 53.7 ml/min; Est GFR (African American) 65.8 ml/min; Est GFR (Non-African American) 56.8 ml/min; Globulin 2.9 gm/dl (2.5-4.0); Magnesium 1.8 mg/dl (1.7-2.4); Potassium 4.1 mmol/L (3.5-5.1)
[2022-01-12 07:30] LABS: Troponin I High Sensitivity 5.3 pg/ml (0-14)
[2022-01-12] MEDS ORDERED: SODIUM CHLORIDE 0.9% 500 ML IV ONE (07:36)
[2022-01-12] MEDS ORDERED: NovoLIN-R INSULIN PER UNIT CHARGE IV STA (07:36)
[2022-01-12 08:25] LABS: Appearance Urine Clear (Clear); Bilirubin Urine Negative (Negative); Blood Urine Negative (Negative); Color Urine Yellow; Glucose Urine UA 2+ (Negative); Ketones Urine Negative (Negative); Leukocyte Esterase Urine Negative (Negative); Nitrite Urine Negative (Negative); Protein Urine Negative (Negative); Specific Gravity Urine 1.008 (1.000-1.030); Urobilinogen Urine Negative (Negative); pH Urine 6.5 (4.5-7.5)
[2022-01-12] MEDS ORDERED: OPTIRAY 300 500mL IV ONE ×2 (08:30→10:20)
--- NOTE | 2022-01-12 09:02 | CT Scan Report ---
CT ANGIOGRAM OF THE BRAIN COMBO; CT ANGIOGRAM OF THE NECK CLINICAL HISTORY: Dizziness. Vertigo. Recent Covid. COMPARISON STUDY: MRI of the brain dated 08/07/2013. TECHNIQUE: Unenhanced axial CT scan of the brain is performed. Subsequently, following the IV adminis tration of 120 of Optiray 300, CT angiogram of the head and neck was performed from the aortic arch t o the vertex. Images are reviewed in the axial, sagittal, and coronal planes. 3-D MIPS images are cre ated and assessed. IV contrast was administered without complication. All measurements were calculate d based on NASCET criteria. A dose lowering technique was utilized adhering to the principles of ALA RA. CT DOSE: 1136.01 mGy.cm FINDINGS: Brain parenchyma: There is age-related involutional change noting minimal microangiopathic disease. T here is no hemorrhage, mass effect, or evidence of acute territorial ischemia by CT criteria. There i s no evidence of enhancing mass lesion on the angiogram phase images. The ventricles, sulci, and cist erns are prominent secondary to involutional change. Bansal-white matter differentiation is preserved. No extra-axial fluid collection is seen. Thoracic aorta: Visualized portions of the thoracic aorta are normal in caliber. The aortic arch demo nstrates bovine variant anatomy. Right carotid arterial system: The right common carotid artery is widely patent, as are the right int ernal and external carotid arteries. Left carotid arterial system: The left common carotid artery is widely patent, as are the left internal combustion engine assembler al and external carotid arteries. Vertebral arteries: The vertebral arteries are widely patent bilaterally noting left-sided dominance. Subclavian arteries: Widely patent bilaterally. Intracranial vasculature: There is atherosclerotic calcification of the cavernous carotid arteries. T he internal carotid arteries are patent at the skull base, as are the anterior and middle cerebral ar teries bilaterally. There are bilateral posterior communicating arteries. The right P1 segment is dim inutive. The vertebrobasilar system and posterior cerebral arteries are widely patent. The left verte bral artery is dominant. There is no aneurysm, high-grade stenosis, or focal vessel cut off seen thro ughout the intracranial circulation. Jugular veins: Patent bilaterally. Dural sinuses: Patent. Upper chest: Partially visualized upper lobe lung parenchyma appears clear. Mediastinal and hilar lym phadenopathy is partially visualized. Prevascular nodes measure up to 13 mm in short axis. A right pe ritracheal node measures 1.4 cm in short axis. Soft tissues: The visualized pharyngeal soft tissues are normal in appearance noting angiographic pha se technique. The oropharyngeal airway appears widely patent. The thyroid gland is mildly enlarged an d heterogeneous. The salivary glands are normal in appearance. No cervical lymphadenopathy is seen. Skeletal structures: The skeletal structures are osteopenic. The calvarium appears intact. The cervic al spine is maintained noting mild spondylosis. No lytic or blastic lesion is seen. Orbits: The bony orbits are intact. Orbital contents are normal as visualized. Sinuses and mastoids: There is mild mucosal thickening in the right maxillary antrum. The remaining p aranasal sinuses are clear. The mastoid air cells are well pneumatized. IMPRESSION: 1. There is no hemorrhage, mass effect, or evidence of acute territorial ischemia by CT criteria. 2. Unremarkable CT angiogram of the brain. 3. Unremarkable CT venogram of the neck. 4. Mildly enlarged mediastinal and hilar lymph nodes are partially visualized. These may be reactive and clinical correlation will be required. ACT 112: Negative or not required by law. Electronically signed by: Reynaldo Schuster M.D. 01/12/2022 9:00 AM
[2022-01-12] MEDS ORDERED: hydrALAZINE HCL 20 MG/ML VIAL IV STA (09:27)
[2022-01-12] MEDS ORDERED: GLUCOSE 10 TAB/TUBE PO PRN (12:18)
[2022-01-12] MEDS ORDERED: ONDANSETRON INJ 2 MG/ML 2 ML VIAL IV PRN (12:18)
[2022-01-12] MEDS ORDERED: ACETAMINOPHEN 325 MG TAB PO PRN (12:18)
[2022-01-12] MEDS ORDERED: CARBOHYDRATES FOR HYPOGLYCEMIA PO PRN (12:18)
[2022-01-12] MEDS ORDERED: GLUCOSE 40% GEL 15 GM TUBE PO PRN (12:18)
[2022-01-12] MEDS ORDERED: DEXTROSE 50% 50 ML SYRINGE IV PRN (12:18)
[2022-01-12] MEDS ORDERED: MECLIZINE 12.5 MG TAB PO PRN (12:18)
[2022-01-12] MEDS ORDERED: GLUCAGON FOR INJ 1 MG VIAL SQ PRN (12:18)
[2022-01-12] MEDS ORDERED: MELATONIN 3 MG TAB PO PRN (12:41)
[2022-01-12] MEDS: SODIUM CHLORIDE 0.9% 1000ML 1,000 ML IV SCH (12:45)
[2022-01-12] MEDS: INSULIN ASPART PER UNIT SC SCH ×3 (13:29→20:59)
--- NOTE | 2022-01-12 14:53 | Electrocardiogram Report ---
Test Reason : Blood Pressure : / mmHG Vent. Rate : 086 BPM Atrial Rate : 086 BPM P-R Int : 176 ms QRS Dur : 092 ms QT Int : 392 ms P-R-T Axes : 030 130 016 degrees QTc Int : 469 ms Normal sinus rhythm RSR' or QR pattern in V1 suggests right ventricular conduction delay Rightward axis Abnormal ECG No previous ECGs available Confirmed by Ghulam Cabrera ([id number]) on 01/12/2022 2:53:34 PM Referred By: REFERRED SELF Confirmed By:Ghulam Cabrera
--- NOTE | 2022-01-12 18:36 | History & Physical Report ---
Date of Service January 12, 2022 Assessment & Plan (1) Dizziness: Plan: Possibly labyrinthitis vs. BPPV. However, BPPV seems less likely as it is not positional and PT did help in the past. - Trial meclizine HS and PRN - PT for vestibular testing - Correct glucose and HTN - Hydrate with IV fluids (2) Acute hyperglycemia: Plan: No hx of DM. Given IV insulin in the ER. - A1c in the AM - Sliding scale insulin (3) Primary hypertension: Plan: BP high in the ER up to 190/100. - Do not think this is hypertensive urgency as her dizziness is long-standing - Continue home lisinopril - Add amlodipine in the evening (4) History of infiltrating ductal carcinoma of breast: Plan: Hx of lumpectomy and lymph node biopsy. - No inpatient needs (5) Anxiety: Plan: - Continue escitalopram (6) DVT prophylaxis: Plan: SCDs, early discharge and ambulation - Low risk per admission calculator FULL CODE Admission and Anticipated Discharge Date Admission Date: January 12, 2022 History of Present Illness Primary Care Provider: Faith Severino MD 71yo F w/ hx of vertigo who presents with vertigo exacerbation. The patient reports that she has had vertigo episodes for years. She has had PT in the past for this and has also been on meclizine. The PT did not help, and the meclizine makes her quite tired, so she minimizes her use of it. She got Covid in late October, and she reports that her vertigo was worse with it. She reports the vertigo as not a classic vertigo. Sometimes, when the vertigo is bad, she reports a "room spinning" sensation, but when it is mild, it is more of a general dizziness or lightheadedness. It does not change with head position left or right, though she does note that it was worse with bending over at work. Over the last week, it has gotten worse, and she decided to come for evaluation. No slurred speech, no focal weakness, no dysarthria or aphasia. No headache, fevers/chills, chest pain, no shortness of breath, no nausea/vomiting. Allergies Allergy/AdvReac Type Severity Reaction Status Date / Time meperidine AdvReac Intermediate syncopy Verified 01/12/22 06:58 Home Medications Medication Instructions Recorded Confirmed Type aspirin 81 mg tablet,delayed 81 mg PO QAM 11/15/18 01/12/22 History release (Aspir-) artificial tears(hypromellose) 0.3 1 drp ophthalmic (eye) HS PRN dry 12/09/21 01/12/22 Rx % eye gel (Systane Gel) eyes #10 grams cholecalciferol (vitamin D3) 25 25 mcg PO DAILY #30 caps 12/09/21 01/12/22 Rx mcg (1,000 unit) capsule escitalopram oxalate 10 mg tablet 10 mg PO BID #180 tabs 12/09/21 01/12/22 Rx (Lexapro) lisinopril 20 mg tablet 20 mg PO DAILY #90 tabs 12/09/21 01/12/22 Rx melatonin 10 mg capsule 10 mg PO HS PRN sleep #90 caps 12/09/21 01/12/22 Rx peg 400-propylene glycol 0.4 %-0.3 1 drp ophthalmic (eye) DAILY PRN 12/09/21 01/12/22 Rx % eye drops (Systane Ultra) dry eye(s) #30 mL zinc 50 mg tablet 50 mg PO DAILY #30 tabs 12/09/21 01/12/22 Rx Past Med/Surg History Medical History Anxiety Chronic back pain History of infiltrating ductal carcinoma of breast L side 2008 s/p lumpectomy & radiation & arimidex Hypercholesteremia Primary hypertension Surgical History Cancer LEFT BREAST LUMPECTOMY-S[facility] NO[facility] REMOVAL-2008 History of lumpectomy of left breast S/P epidural steroid injection Family History Sister Family history of diabetes mellitus Heart disease Sister Family history of diabetes mellitus Heart disease Denies family history of Ovarian cancer Prostate cancer Breast cancer Colorectal cancer Social History Smoking Status: Never smoker Second Hand Exposure: No; Hx Alcohol Use: No Hx Substance Use: No Preferred Language: Salvadorean Communication Ability: Effective Visual Impairment: No Limitations Hearing Ability: Normal Food And Beverage Order Clerk Required: No Beliefs That Will Affect Care: None marital status: Current Living Situation: Spouse current occupational status: retired 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 Safe at Home: Yes Safety Concerns: Feels Safe At This Time Dental Care, Regularly: Yes Physical Activity Frequency: Does not Exercise Seatbelt Use: always Assistive Devices: Denture - Upper Review of Systems Review of Systems: All systems reviewed & are unremarkable except as noted in HPI & below Physical Exam Constitutional: WD/WN, vitals as above Eyes: EOM intact bilaterally; no conjunctival abnormality ENMT: external ear and nose normal, oropharynx normal Neck: trachea midline, no thyromegaly normal visual inspection Respiratory: normal respiratory effort, lungs clear to auscultation no respiratory distress Cardiovascular: RRR, no murmur, no edema Gastrointestinal (Abdomen): Inspection/Auscultation: abdomen normal to i nspection; abdomen not distended Musculoskeletal: no cyanosis or clubbing, extremities motor strength 5/5 Skin: no rashes, warm and dry Neurologic: moves all extremities and awake Psychiatric: Orientation: alert, oriented to person and cooperative Results & Data Results & Data ([facility]) Vital Signs (Past 12 Hours) Vital Signs Temp Pulse Resp BP Pulse Ox O2 Del Method 01/12/22 15:25 36.8 C 82 18 154/103 H 95 Room Air 01/12/22 14:37 143/88 H 01/12/22 13:12 79 18 173/92 H 97 Room Air 01/12/22 11:50 157/104 H 01/12/22 10:36 73 16 168/104 H 97 Room Air 01/12/22 10:04 185/102 H 01/12/22 09:34 59 L 16 184/98 H 95 Room Air 01/12/22 08:13 60 18 192/103 H 96 Room Air 01/12/22 06:38 95 Room Air 01/12/22 06:38 20 95 Room Air 01/12/22 06:38 Room Air Code Status & VTE Plan VTE Prophylaxis Plan VTE Prophylaxis will be ordered: Yes PG Care Time/CCT Total # of Minutes Spent Total Time Spent with Patient: Total time spent is greater than 50% in coordination of care (as documented) at patient's floor/unit and/or counseling patient: Coding Level of Care Code INT OBSERVATION CARE 72M LVL 3 Diagnoses Dizziness R42 Acute hyperglycemia R73.9 Primary hypertension I10 History of infiltrating ductal carcinoma of breast Z85.3 Anxiety F41.9 DVT prophylaxis Z29.9
[2022-01-12] MEDS: ESCITALOPRAM OXALATE 10 MG TAB PO SCH (20:50)
[2022-01-12] MEDS ORDERED: amLODIPine BESYLATE 5 MG TAB PO SCH (21:00)
[2022-01-12] MEDS ORDERED: MECLIZINE HCL 25 MG TAB PO SCH (21:00)
[2022-01-13] MEDS: SODIUM CHLORIDE 0.9% 1000ML 1,000 ML IV SCH (01:46)
[2022-01-13 08:38] LABS: Hematocrit (blood only) 43.5 % (34.1-44.9); Hemoglobin 14.8 g/dl (12.0-16.0); Mean Corpuscular Hemoglobin 29.5 pg (25.0-34.0); Mean Corpuscular Volume 86.7 fL (80.0-100.0); Mean Platelet Volume 9.7 fL (9.4-12.3); Platelet Count 221 K/uL (130-400); RDW Coefficient of Variation 12.7 % (11.5-14.5); RDW Standard Deviation 39.8 fL (36.4-46.3); Red Blood Count 5.02 M/uL (3.93-5.22); White Blood Count 5.62 K/ul (4.8-10.8)
[2022-01-13] MEDS: INSULIN ASPART PER UNIT SC SCH ×2 (08:49→12:40)
[2022-01-13] MEDS: ESCITALOPRAM OXALATE 10 MG TAB PO SCH (08:58)
[2022-01-13] MEDS ORDERED: CHOLECALCIFEROL 1,000 UNITS 25 MCG TAB PO SCH (09:00)
[2022-01-13] MEDS ORDERED: lisinopril 20 MG TAB PO SCH (09:00)
[2022-01-13] MEDS ORDERED: ASPIRIN 81 MG ECTAB PO SCH (09:00)
[2022-01-13 09:03] LABS: Calcium 9.2 mg/dl (8.5-10.1); Creatinine Clr Calc Pharmacy 73.3 ml/min; Est GFR (African American) 94.3 ml/min; Est GFR (Non-African American) 81.3 ml/min; Potassium 3.9 mmol/L (3.5-5.1)
[2022-01-13 09:14] LABS: Estimated Average Glucose 174 mg/dl; Hemoglobin A1C 7.7 % (4.5-5.6)
--- NOTE | 2022-01-13 19:22 | Discharge Summary ---
Date of Service January 13, 2022 Admission HPI Per Admitting Provider 71yo F w/ hx of vertigo who presents with vertigo exacerbation. The patient reports that she has had vertigo episodes for years. She has had PT in the past for this and has also been on meclizine. The PT did not help, and the meclizine makes her quite tired, so she minimizes her use of it. She got Covid in late October, and she reports that her vertigo was worse with it. She reports the vertigo as not a classic vertigo. Sometimes, when the vertigo is bad, she reports a "room spinning" sensation, but when it is mild, it is more of a general dizziness or lightheadedness. It does not change with head position left or right, though she does note that it was worse with bending over at work. Over the last week, it has gotten worse, and she decided to come for evaluation. No slurred speech, no focal weakness, no dysarthria or aphasia. No headache, fevers/chills, chest pain, no shortness of breath, no nausea/vomiting. Principal Diagnosis Newly diagnosed diabetes High blood pressure Dizziness -> Likely labyrinthitis Discharge Exam Constitutional WD/WN, vitals as above Eyes EOM intact bilaterally; no conjunctival abnormality ENMT external ear and nose normal, oropharynx normal Neck trachea midline, no thyromegaly normal visual inspection Respiratory normal respiratory effort, lungs clear to auscultation no respiratory distress Cardiovascular RRR, no murmur, no edema Gastrointestinal (Abdomen) Inspection/Auscultation: abdomen normal to inspection; abdomen not distended Musculoskeletal no cyanosis or clubbing, extremities motor strength 5/5 Skin no rashes, warm and dry Neurologic moves all extremities and awake Psychiatric Orientation: alert, oriented to person and cooperative Discharge Data Allergies Allergy/AdvReac Type Severity Reaction Status Date / Time meperidine AdvReac Intermediate syncopy Verified 01/12/22 06:58 Consultations 01/12/22 09:31 ED Decision to Admit Stat Ordered Studies 01/12/22 06:35 CT angio head wo/w Stat CT angio neck with con Stat Diabetes Follow up Diabetes Follow-up Needed for Newly Diagnosed Diabetes Hospital Course (1) Dizziness: Possibly labyrinthitis vs. BPPV. However, BPPV seems less likely as it is not positional and PT did help in the past. - Trialed meclizine HS and PRN - Corrected glucose and HTN - Hydrated with IV fluids - Improved significantly with correctly of blood sugar and mild improvement of blood pressure. Likely some level of labyrinthitis due to those things. (2) Acute hyperglycemia: No hx of DM, but received it here as A1c was 7.7%. - Sliding scale insulin while inpatient. - Discharged on metformin XR 500 mg PO BID with plans to improve diet and exercise and increase dose with PCP in 2-3 weeks. Seen by DM Educator and supplies sent to pharmacy. (3) Primary hypertension: BP high in the ER up to 190/100. Do not think this is hypertensive urgency as her dizziness is long-standing. - Continue home lisinopril - Added amlodipine in the evening (4) History of infiltrating ductal carcinoma of breast: Hx of lumpectomy and lymph node biopsy. - No inpatient needs (5) Anxiety: - Continue escitalopram (6) DVT prophylaxis: SCDs, early discharge and ambulation - Low risk per admission calculator FULL CODE Total Time Total Time Spent Total Time Spent (In Minutes): 35 Discharge Plan Discharge Items Patient Disposition: Home - Self-Care Reason For Visit: HIGH BLOOD PRESSURE, HIGH BLOOD SUGAR Discharge Diagnosis: High blood pressure, new diabetes diagnosis Activity: Resume your previous activity Non-emergency contact: Primary Care Provider Call non-emergency contact if: your symptoms worsen Follow-up/Referrals: Faith Severino MD [Primary Care Provider] - 01/27/22 8:30 am (With Malu Diaz PA-C) Diet: Carb Consistent or DM2 Addtl Attending Provider Instructions: Ms. Rolle, You were admitted to the hospital with dizziness and vertigo that we think was caused by some inner ear inflammation. We believe that this might have been kicked off by some high blood sugars as well as your prior Covid infection. We diagnosed you with diabetes while in the hospital. We will start a low-dose of metformin to help lower your blood sugars, and you can see Dr. Severino in a week or so to see how you are doing. Additionally, we want to start a new blood pressure medication to help gently bring your blood pressure down a bit more. This is called amlodipine and can be started tonight before bedtime. As we discussed, there are significant benefits to taking a blood pressure medication at night, and I think by spacing out the two medications, you will see benefits without much (if any!) downside. For the dizziness, it improved as we improved those issues; however, if you'd like to try to continue to take the meclizine at night before bed, I did send in some additional meclizine. Pending Studies at Discharge: No Stand-Alone Forms: [facility], Smoking Cessation Medications and DC Order Prescriptions: New amlodipine [Norvasc] 5 mg Tablet 2.5 mg PO HS Qty: 30 0RF meclizine 25 mg Tablet 25 mg PO HS Qty: 30 0RF metformin 500 mg tablet extended release 24hr 500 mg PO BID Qty: 60 0RF (DME) diabetic supplies, miscellan. Misc See Rx Instructions .Route Qty: 1 0RF Rx Instructions: As directed (DME) diabetic supplies, miscellan. Misc See Rx Instructions .Route Qty: 1 0RF Rx Instructions: As directed Continued Systane Gel 0.3 % gel 1 drp ophthalmic (eye) HS PRN (Reason: dry eyes) Qty: 10 0RF Systane Ultra 0.4-0.3 % drops 1 drp ophthalmic (eye) DAILY PRN (Reason: dry eye(s)) Qty: 30 0RF lisinopril 20 mg tablet 20 mg PO DAILY Qty: 90 3RF escitalopram oxalate [Lexapro] 10 mg tablet 10 mg PO BID Qty: 180 3RF cholecalciferol (vitamin D3) 25 mcg (1,000 unit) capsule 25 mcg PO DAILY Qty: 30 0RF zinc 50 mg tablet 50 mg PO DAILY Qty: 30 0RF melatonin 10 mg capsule 10 mg PO HS PRN (Reason: sleep) Qty: 90 0RF aspirin [Aspir-81] 81 mg Tablet,Delayed Release (Dr/Ec) 81 mg PO QAM Discharge Orders: Discharge Order (Routine); Ordered 01/13/22 Ordered By: Eugenio Pollard/Other Patient Handouts: High Blood Sugar (Hyperglycemia), Hypoglycemia (Low Blood Sugar), Resources for People with Diabetes, Managing Type 2 Diabetes, How to Check Your Blood Sugar Admission Data Admit Date/Time: 01/12/22 10:28 Attending Provider: Hernandes,Eugenio J. Admit Provider: Eugenio Hernandes Primary Care Provider: Faith Severino Other Providers: Eugenio Hernandes Other Interventions: Discharge Summary Assessment (RN) Last Done: 01/13/22 15:38 Coding Level of Care Code 83649 OBS Care - Discharge Diagnoses Dizziness R42 Acute hyperglycemia R73.9 Primary hypertension I10 History of infiltrating ductal carcinoma of breast Z85.3 Anxiety F41.9 DVT prophylaxis Z29.9
== END 2022-01-13 16:26 | disposition home or self-care (01) ==
LOC: EDINP 05:54 → ED 05:54 → 3N 12:18